=== PATIENT | female | born 1965 | race Two or more races ===

== ENCOUNTER → 2017-06-28 | Outpatient (CLI) | payer BC ==
[~2017-06-28] MED LIST: ASPI-231 PO
[2017-06-28 08:41] LABS: Basophils # (auto) 0 uL; Basophils % (auto) 0.8 % (0.0-2.0); Eosinophils # (auto) 0.1 uL; Eosinophils % (auto) 2.1 % (0.0-7.0); Hematocrit 41.4 % (36.0-46.0); Hemoglobin 13.9 g/dL (12.2-16.2); Lymphocytes # (auto) 1.6 uL; Lymphocytes % (auto) 36.1 % (10.0-50.0); Mean Corpuscular Hemoglobin 31.7 pg (28.0-32.0); Mean Corpuscular Hgb Conc. 33.6 g/dL (32.0-36.0); Mean Corpuscular Volume 94.4 fL (80.0-100.0); Monocytes # (auto) 0.3 uL; Monocytes % (auto) 7.5 % (0.0-12.0); Neutrophils # (auto) 2.4 uL; Neutrophils % (auto) 53.5 % (37.0-80.0); Nucleated Red Blood Cells % 0.1 %; Platelet Count (auto) 205 10^3/uL (140-450); Red Cell Distribution Width 13.4 % (11.8-14.3); White Blood Cell 4.5 10^3/uL (4.4-10.8)
[2017-06-28 09:46] LABS: Albumin 3.8 g/dL (3.4-5.0); Bilirubin, Total 0.6 mg/dL (0.2-1.0); Potassium 4.1 mmol/L (3.5-5.1); Total Protein 7.3 g/dL (6.4-8.2)
== END | disposition home or self-care (01) ==
LOC: LAB 08:23
PROVIDERS: ATTEND Internal Medicine
DX: Z12.10 Encounter for screening for malignant neoplasm of intestinal tract, unspecified (principal); F41.8 Other specified anxiety disorders; Z79.899 Other long term (current) drug therapy
CPT/HCPCS: 36415; 80053; 80061; 82306; 84443; 85025

== ENCOUNTER → 2017-07-04 | Outpatient (CLI) | payer BC | END | disposition home or self-care (01) | LOC: LAB 09:20 | PROVIDERS: ATTEND Internal Medicine | DX: Z12.10 Encounter for screening for malignant neoplasm of intestinal tract, unspecified (principal); F41.8 Other specified anxiety disorders | CPT/HCPCS: 82270 ==

== ENCOUNTER → 2019-03-11 | Outpatient (CLI) | payer BC ==
[2019-03-11 08:38] LABS: Albumin 3.6 g/dL (3.4-5.0); Calcium 9.1 mg/dL (8.5-10.1); Potassium 4.3 mmol/L (3.5-5.1)
[2019-03-11 08:45] LABS: BUN/Creatinine Ratio 12.5; Bilirubin, Total 0.5 mg/dL (0.2-1.0); Total Protein 7.3 g/dL (6.4-8.2)
[2019-03-11 08:48] LABS: Basophils # (auto) 0 uL; Basophils % (auto) 0.9 % (0.0-2.0); Eosinophils # (auto) 0.1 uL; Hematocrit 42.3 % (36.0-46.0); Hemoglobin 14.2 g/dL (12.2-16.2); Lymphocytes # (auto) 1.4 uL; Lymphocytes % (auto) 33.2 % (10.0-50.0); Mean Corpuscular Hemoglobin 31.3 pg (28.0-32.0); Mean Corpuscular Hgb Conc. 33.6 g/dL (32.0-36.0); Mean Corpuscular Volume 93.2 fL (80.0-100.0); Monocytes # (auto) 0.3 uL; Monocytes % (auto) 7.2 % (0.0-12.0); Neutrophils # (auto) 2.4 uL; Neutrophils % (auto) 56.7 % (37.0-80.0); Platelet Count (auto) 216 10^3/uL (140-450); Red Blood Cells 4.54 10^6/uL (4.0-5.20); Red Cell Distribution Width 13.9 % (11.8-14.3); White Blood Cell 4.2 10^3/uL (4.4-10.8)
== END | disposition home or self-care (01) ==
LOC: LAB 07:37
PROVIDERS: ATTEND Internal Medicine
DX: Z12.11 Encounter for screening for malignant neoplasm of colon (principal)
CPT/HCPCS: 36415; 80053; 80061; 82306; 84443; 85025

== ENCOUNTER → 2020-05-03 | Outpatient (CLI) | payer BC ==
[2020-05-03 10:38] LABS: Basophils # (auto) 0 10 ^3/uL (0-0.2); Basophils % (auto) 0.9 % (0.0-2.0); Eosinophils # (auto) 0.1 10 ^3/uL (0-0.8); Eosinophils % (auto) 3.7 % (0.0-7.0); Hematocrit 38.9 % (36.0-46.0); Hemoglobin 12.8 g/dL (12.2-16.2); Lymphocytes # (auto) 1.3 10 ^3/uL (0.4-5.4); Lymphocytes % (auto) 36.1 % (10.0-50.0); Mean Corpuscular Hemoglobin 30.4 pg (28.0-32.0); Mean Corpuscular Volume 92.2 fL (80.0-100.0); Monocytes # (auto) 0.3 10 ^3/uL (0-1.3); Monocytes % (auto) 8.3 % (0.0-12.0); Neutrophils # (auto) 1.9 10 ^3/uL (1.6-8.6); Nucleated Red Blood Cells % 0.1 %; Platelet Count (auto) 270 10^3/uL (140-450); Red Blood Cells 4.22 10^6/uL (4.0-5.20); Red Cell Distribution Width 13.8 % (11.8-14.3); White Blood Cell 3.6 10^3/uL (4.4-10.8)
[2020-05-03 10:58] LABS: Potassium 4.2 mmol/L (3.5-5.1)
[2020-05-03 11:06] LABS: Albumin 3.8 g/dL (3.4-5.0); BUN/Creatinine Ratio 17.9; Bilirubin, Total 0.5 mg/dL (0.2-1.0); Total Protein 7.8 g/dL (6.4-8.2)
== END | disposition home or self-care (01) ==
LOC: LAB 08:41
PROVIDERS: ATTEND Internal Medicine
DX: Z00.00 Encounter for general adult medical examination without abnormal findings (principal); E55.9 Vitamin D deficiency, unspecified
CPT/HCPCS: 36415; 80053; 80061; 82274; 82306; 84443; 85025

== ENCOUNTER → 2021-11-20 | Outpatient (CLI) | payer BC ==
[~2021-11-20] MED LIST changes: -ASPI-231 PO; +ASPI1TAB20 PO
[2021-11-20 08:40] LABS: Urine Bacteria NONE SEEN /hpf (None Seen); Urine Blood 1+ /uL (Negative); Urine Mucus FEW (None Seen); Urine Specific Gravity 1.026 (1.001-1.035); Urine WBC 37 /hpf (0 - 5)
[2021-11-20 09:16] LABS: Basophils # (auto) 0 10 ^3/uL (0-0.2); Basophils % (auto) 0.5 % (0.0-2.0); Eosinophils # (auto) 0.1 10 ^3/uL (0-0.8); Eosinophils % (auto) 1.6 % (0.0-7.0); Hematocrit 43.2 % (36.0-46.0); Hemoglobin 14.2 g/dL (12.2-16.2); Lymphocytes # (auto) 1.5 10 ^3/uL (0.4-5.4); Lymphocytes % (auto) 28.7 % (10.0-50.0); Mean Corpuscular Volume 90.6 fL (80.0-100.0); Monocytes # (auto) 0.4 10 ^3/uL (0-1.3); Monocytes % (auto) 6.9 % (0.0-12.0); Neutrophils # (auto) 3.2 10 ^3/uL (1.6-8.6); Neutrophils % (auto) 62.3 % (37.0-80.0); Nucleated Red Blood Cells % 0.1 %; Red Blood Cells 4.76 10^6/uL (4.0-5.20); White Blood Cell 5.1 10^3/uL (4.4-10.8)
[2021-11-20 09:17] LABS: Mean Corpuscular Hemoglobin 29.8 pg (28.0-32.0); Mean Corpuscular Hgb Conc. 32.9 g/dL (32.0-36.0); Red Cell Distribution Width 14.4 % (11.8-14.3)
[2021-11-20 09:49] LABS: Albumin 3.9 g/dL (3.4-5.0); Bilirubin, Total 0.7 mg/dL (0.2-1.0); Calcium 9.5 mg/dL (8.5-10.1); Total Protein 7.8 g/dL (6.4-8.2)
== END | disposition home or self-care (01) ==
LOC: LAB 08:08
PROVIDERS: ATTEND Internal Medicine
DX: Z00.00 Encounter for general adult medical examination without abnormal findings (principal); E55.9 Vitamin D deficiency, unspecified; R10.13 Epigastric pain
CPT/HCPCS: 36415; 80053; 80061; 81001; 82150; 82306; 83690; 84439; 84443; 85025; 85652

== ENCOUNTER → 2021-12-05 | Outpatient (CLI) | payer BC | END | disposition home or self-care (01) | LOC: LAB 07:30 | PROVIDERS: ATTEND Internal Medicine | DX: Z00.00 Encounter for general adult medical examination without abnormal findings (principal); E55.9 Vitamin D deficiency, unspecified; R10.13 Epigastric pain | CPT/HCPCS: 82270 ==

== ENCOUNTER → 2022-05-08 | Outpatient (CLI) | payer BC ==
[2022-05-08 08:47] LABS: Calcium 9.1 mg/dL (8.5-10.1); Potassium 4.5 mmol/L (3.5-5.1)
[2022-05-08 08:49] LABS: BUN/Creatinine Ratio 14.6
== END | disposition home or self-care (01) ==
LOC: LAB 08:14
PROVIDERS: ATTEND Internal Medicine
DX: R10.13 Epigastric pain (principal)
CPT/HCPCS: 36415; 80048

== ENCOUNTER → 2022-06-05 | Outpatient (CLI) | payer BC ==
[2022-06-05 15:08] LABS: Eosinophils # (auto) 0.1 10 ^3/uL (0-0.8); Hematocrit 41.8 % (36.0-46.0); Hemoglobin 13.3 g/dL (12.2-16.2); Monocytes # (auto) 0.4 10 ^3/uL (0-1.3)
[2022-06-05 15:11] LABS: Basophils # (auto) 0.1 10 ^3/uL (0-0.2); Basophils % (auto) 1.1 % (0.0-2.0); Eosinophils % (auto) 1.4 % (0.0-7.0); Lymphocytes # (auto) 1.3 10 ^3/uL (0.4-5.4); Lymphocytes % (auto) 25.4 % (10.0-50.0); Mean Corpuscular Hemoglobin 29.1 pg (28.0-32.0); Mean Corpuscular Hgb Conc. 31.7 g/dL (32.0-36.0); Mean Corpuscular Volume 91.6 fL (80.0-100.0); Monocytes % (auto) 7.3 % (0.0-12.0); Neutrophils # (auto) 3.4 10 ^3/uL (1.6-8.6); Neutrophils % (auto) 64.8 % (37.0-80.0); Nucleated Red Blood Cells % 0.1 %; Red Blood Cells 4.57 10^6/uL (4.0-5.20); Red Cell Distribution Width 14.2 % (11.8-14.3); White Blood Cell 5.2 10^3/uL (4.4-10.8)
[2022-06-05 15:16] LABS: Albumin 3.5 g/dL (3.4-5.0); Potassium 4.4 mmol/L (3.5-5.1)
[2022-06-05 15:22] LABS: BUN/Creatinine Ratio 18.6; Bilirubin, Total 0.5 mg/dL (0.2-1.0); Total Protein 7.3 g/dL (6.4-8.2)
== END | disposition home or self-care (01) ==
LOC: LAB 14:52
PROVIDERS: ATTEND Internal Medicine
DX: Z00.00 Encounter for general adult medical examination without abnormal findings (principal); Z12.11 Encounter for screening for malignant neoplasm of colon; M75.100 Unspecified rotator cuff tear or rupture of unspecified shoulder, not specified as traumatic
CPT/HCPCS: 36415; 80053; 80061; 82274; 84439; 84443; 85025; 85652

== ENCOUNTER 2022-07-07 03:29 | Emergency (ER) | payer BC ==
[~2022-07-07] VITALS: Ht 160 cm; Wt 82.3 kg
[2022-07-07 06:09] LABS: Basophils # (auto) 0 10 ^3/uL (0-0.2); Basophils % (auto) 0.4 % (0.0-2.0); Eosinophils # (auto) 0.1 10 ^3/uL (0-0.8); Eosinophils % (auto) 1.3 % (0.0-7.0); Hematocrit 37.3 % (36.0-46.0); Hemoglobin 12.8 g/dL (12.2-16.2); Lymphocytes # (auto) 1.2 10 ^3/uL (0.4-5.4); Lymphocytes % (auto) 23.7 % (10.0-50.0); Mean Corpuscular Hemoglobin 30.3 pg (28.0-32.0); Mean Corpuscular Hgb Conc. 34.2 g/dL (32.0-36.0); Mean Corpuscular Volume 88.5 fL (80.0-100.0); Monocytes # (auto) 0.4 10 ^3/uL (0-1.3); Monocytes % (auto) 7.1 % (0.0-12.0); Neutrophils # (auto) 3.4 10 ^3/uL (1.6-8.6); Neutrophils % (auto) 67.5 % (37.0-80.0); Nucleated Red Blood Cells % 0.1 %; Red Blood Cells 4.22 10^6/uL (4.0-5.20); Red Cell Distribution Width 14.3 % (11.8-14.3); White Blood Cell 5.1 10^3/uL (4.4-10.8)
[2022-07-07 06:27] LABS: Urine Bacteria NONE SEEN /hpf (None Seen); Urine Blood Negative /uL (Negative); Urine Hyaline Cast FEW /lpf (0 - 2); Urine Mucus FEW (None Seen); Urine Specific Gravity 1.021 (1.001-1.035); Urine WBC 8 /hpf (0 - 5)
[2022-07-07 06:43] LABS: Albumin 3.5 g/dL (3.4-5.0); Calcium 8.7 mg/dL (8.5-10.1); Potassium 3.7 mmol/L (3.5-5.1)
[2022-07-07 06:48] LABS: BUN/Creatinine Ratio 14.6; Bilirubin, Total 0.6 mg/dL (0.2-1.0); Total Protein 7.4 g/dL (6.4-8.2)
[2022-07-07] MEDS ORDERED: PANTOPRAZOLE 40 MG TAB PO ONE (07:30)
[2022-07-07] MEDS ORDERED: DONNATAL 5ml ORAL Elix (BELLADONNA ALK-PHENOBARB) PO ONE (07:30)
[2022-07-07] MEDS ORDERED: ALUM & MAG HYDROX-SIMETH LIQ(MAALOX) 30 ML PO ONE (07:30)
[2022-07-07] MEDS ORDERED: CIPROFLOXACIN HCL 500 MG TAB PO ONE (07:30)
[2022-07-07 07:35] VITALS: BP 124/83
[2022-07-07] MEDS ORDERED: CIPR-173 PO (07:56)
[2022-07-07] MEDS ORDERED: METO-281 PO (07:56)
[2022-07-07] MEDS ORDERED: ALUMCHW6 PO (07:56)
== END 2022-07-07 08:25 | disposition home or self-care (01) ==
LOC: ER 03:35
DX: K29.70 Gastritis, unspecified, without bleeding (principal); K27.9 Peptic ulcer, site unspecified, unspecified as acute or chronic, without hemorrhage or perforation; N39.0 Urinary tract infection, site not specified; F17.210 Nicotine dependence, cigarettes, uncomplicated; Z90.49 Acquired absence of other specified parts of digestive tract; Z98.51 Tubal ligation status; Z91.018 Allergy to other foods
CPT/HCPCS: 36415; 80053; 81001; 83690; 85025

== ENCOUNTER → 2022-08-21 | Outpatient (CLI) | payer BC ==
[~2022-08-21] MED LIST changes: +ALUMCHW6 PO; +CIPR-173 PO; +METO-281 PO
[2022-08-21 12:14] LABS: Basophils # (auto) 0 10 ^3/uL (0-0.2); Basophils % (auto) 0.6 % (0.0-2.0); Eosinophils # (auto) 0.1 10 ^3/uL (0-0.8); Eosinophils % (auto) 2.2 % (0.0-7.0); Hematocrit 38.5 % (36.0-46.0); Hemoglobin 12.8 g/dL (12.2-16.2); Lymphocytes # (auto) 1.5 10 ^3/uL (0.4-5.4); Lymphocytes % (auto) 26.7 % (10.0-50.0); Mean Corpuscular Hgb Conc. 33.4 g/dL (32.0-36.0); Monocytes # (auto) 0.4 10 ^3/uL (0-1.3); Monocytes % (auto) 6.7 % (0.0-12.0); Neutrophils # (auto) 3.5 10 ^3/uL (1.6-8.6); Neutrophils % (auto) 63.8 % (37.0-80.0); Nucleated Red Blood Cells % 0.3 %; Red Blood Cells 4.42 10^6/uL (4.0-5.20); Red Cell Distribution Width 14.8 % (11.8-14.3); White Blood Cell 5.5 10^3/uL (4.4-10.8)
[2022-08-21 12:50] LABS: Albumin 3.3 g/dL (3.4-5.0); Calcium 8.9 mg/dL (8.5-10.1); Potassium 4.3 mmol/L (3.5-5.1)
[2022-08-21 12:58] LABS: BUN/Creatinine Ratio 22.5; Bilirubin, Total 0.3 mg/dL (0.2-1.0); CRP High Sensitivity 1.47 mg/dL (< 0.3); Total Protein 7.4 g/dL (6.4-8.2)
== END | disposition home or self-care (01) ==
LOC: LAB 10:59
PROVIDERS: ATTEND Internal Medicine Rheumatology
DX: R94.5 Abnormal results of liver function studies (principal); M05.79 Rheumatoid arthritis with rheumatoid factor of multiple sites without organ or systems involvement
CPT/HCPCS: 36415; 80053; 85025; 85652; 86141; 86704; 87340

== ENCOUNTER 2022-09-25 13:57 | Outpatient (CLI) | payer BC ==
[~2022-09-25] VITALS: Ht 160 cm; Wt 78.5 kg
[2022-09-25 14:09] LABS: Basophils # (auto) 0 10 ^3/uL (0-0.2); Basophils % (auto) 0.5 % (0.0-2.0); Eosinophils # (auto) 0.1 10 ^3/uL (0-0.8); Eosinophils % (auto) 1.7 % (0.0-7.0); Hematocrit 39.5 % (36.0-46.0); Hemoglobin 13.3 g/dL (12.2-16.2); Lymphocytes # (auto) 1.5 10 ^3/uL (0.4-5.4); Lymphocytes % (auto) 23.1 % (10.0-50.0); Mean Corpuscular Hemoglobin 28.7 pg (28.0-32.0); Mean Corpuscular Hgb Conc. 33.7 g/dL (32.0-36.0); Mean Corpuscular Volume 85.2 fL (80.0-100.0); Monocytes # (auto) 0.5 10 ^3/uL (0-1.3); Monocytes % (auto) 6.9 % (0.0-12.0); Neutrophils # (auto) 4.5 10 ^3/uL (1.6-8.6); Neutrophils % (auto) 67.8 % (37.0-80.0); Nucleated Red Blood Cells % 0.1 %; Red Blood Cells 4.64 10^6/uL (4.0-5.20); Red Cell Distribution Width 15.5 % (11.8-14.3); White Blood Cell 6.7 10^3/uL (4.4-10.8)
[2022-09-25 14:31] LABS: INR 1.02 (0.9-1.15)
[2022-09-25 14:52] LABS: Albumin 3.4 g/dL (3.4-5.0); BUN/Creatinine Ratio 13.5; Calcium 9.3 mg/dL (8.5-10.1); Potassium 4.2 mmol/L (3.5-5.1)
[2022-09-25 14:55] LABS: Bilirubin, Total 0.6 mg/dL (0.2-1.0); Total Protein 7.9 g/dL (6.4-8.2)
[2022-09-25] MEDS ORDERED: MELO-61 PO (16:04)
[2022-09-25] MEDS ORDERED: PANT40TA2 PO (16:04)
== END 2022-09-25 14:52 | disposition home or self-care (01) ==
LOC: LAB 13:57 → EDSTATUS 09-27 09:48
PROVIDERS: ATTEND Internal Medicine Gastroenterology
DX: Z01.812 Encounter for preprocedural laboratory examination (principal); R10.13 Epigastric pain; Z20.822 Contact with and (suspected) exposure to COVID-19
CPT/HCPCS: 36415; 80053; 85025; 85610; 85730; U0003

== ENCOUNTER → 2023-01-14 | Outpatient (CLI) | payer BC ==
[~2023-01-14] MED LIST changes: -ALUMCHW6 PO; -ASPI1TAB20 PO; -CIPR-173 PO; +MELO-61 PO; -METO-281 PO; +PANT40TA2 PO
[2023-01-14 12:24] LABS: Basophils # (auto) 0 10 ^3/uL (0-0.2); Basophils % (auto) 0.5 % (0.0-2.0); Eosinophils # (auto) 0.1 10 ^3/uL (0-0.8); Eosinophils % (auto) 2.3 % (0.0-7.0); Hematocrit 37.6 % (36.0-46.0); Hemoglobin 12.6 g/dL (12.2-16.2); Lymphocytes # (auto) 1.6 10 ^3/uL (0.4-5.4); Lymphocytes % (auto) 28.6 % (10.0-50.0); Mean Corpuscular Hemoglobin 28.3 pg (28.0-32.0); Mean Corpuscular Hgb Conc. 33.6 g/dL (32.0-36.0); Mean Corpuscular Volume 84.2 fL (80.0-100.0); Monocytes # (auto) 0.4 10 ^3/uL (0-1.3); Monocytes % (auto) 7.9 % (0.0-12.0); Neutrophils # (auto) 3.4 10 ^3/uL (1.6-8.6); Neutrophils % (auto) 60.7 % (37.0-80.0); Nucleated Red Blood Cells % 0.1 %; Red Blood Cells 4.47 10^6/uL (4.0-5.20); Red Cell Distribution Width 16.1 % (11.8-14.3); White Blood Cell 5.6 10^3/uL (4.4-10.8)
[2023-01-14 13:29] LABS: Albumin 3.5 g/dL (3.4-5.0); BUN/Creatinine Ratio 21.1 (10.0-20.0); Potassium 4.4 mmol/L (3.5-5.1)
[2023-01-14 13:33] LABS: Bilirubin, Total 0.4 mg/dL (0.2-1.0); Total Protein 7.9 g/dL (6.4-8.2)
[2023-01-15 14:46] LABS: CRP High Sensitivity 0.92 mg/dL (< 0.3)
== END | disposition home or self-care (01) ==
LOC: LAB 11:18
PROVIDERS: ATTEND Internal Medicine Rheumatology
DX: M05.79 Rheumatoid arthritis with rheumatoid factor of multiple sites without organ or systems involvement (principal); Z79.899 Other long term (current) drug therapy
CPT/HCPCS: 36415; 80053; 85025; 85652; 86141

== ENCOUNTER → 2023-05-10 | Outpatient (CLI) | payer SELFPAY ==
[2023-05-10 11:44] LABS: Basophils # (auto) 0 10 ^3/uL (0-0.2); Basophils % (auto) 0.6 % (0.0-2.0); Eosinophils # (auto) 0.1 10 ^3/uL (0-0.8); Hematocrit 37.6 % (36.0-46.0); Hemoglobin 12.8 g/dL (12.2-16.2); Lymphocytes # (auto) 1.5 10 ^3/uL (0.4-5.4); Lymphocytes % (auto) 28.1 % (10.0-50.0); Mean Corpuscular Hemoglobin 29.5 pg (28.0-32.0); Mean Corpuscular Hgb Conc. 34.2 g/dL (32.0-36.0); Mean Corpuscular Volume 86.2 fL (80.0-100.0); Monocytes # (auto) 0.4 10 ^3/uL (0-1.3); Monocytes % (auto) 6.6 % (0.0-12.0); Neutrophils # (auto) 3.3 10 ^3/uL (1.6-8.6); Neutrophils % (auto) 62.7 % (37.0-80.0); Nucleated Red Blood Cells % 0.1 %; Red Blood Cells 4.36 10^6/uL (4.0-5.20); Red Cell Distribution Width 15.8 % (11.8-14.3); White Blood Cell 5.3 10^3/uL (4.4-10.8)
[2023-05-10 12:14] LABS: Albumin 3.4 g/dL (3.4-5.0); Potassium 4.2 mmol/L (3.5-5.1)
[2023-05-10 12:18] LABS: BUN/Creatinine Ratio 13.5 (10.0-20.0); Bilirubin, Total 0.4 mg/dL (0.2-1.0); CRP High Sensitivity 0.55 mg/dL (< 0.3); Total Protein 7.5 g/dL (6.4-8.2)
[2023-05-10 12:24] LABS: Erythrocyte Sedimentation Rate 23 mm/hr (0-20)
== END | disposition home or self-care (01) ==
LOC: LAB 11:13
PROVIDERS: ATTEND Internal Medicine Rheumatology
DX: M05.79 Rheumatoid arthritis with rheumatoid factor of multiple sites without organ or systems involvement (principal); Z79.899 Other long term (current) drug therapy
CPT/HCPCS: 36415; 80053; 85025; 85652; 86141

== ENCOUNTER → 2023-08-20 | Outpatient (CLI) | payer BC ==
[2023-08-20 09:35] LABS: Basophils # (auto) 0 10 ^3/uL (0-0.2); Basophils % (auto) 0.6 % (0.0-2.0); Eosinophils # (auto) 0.1 10 ^3/uL (0-0.8); Eosinophils % (auto) 2.7 % (0.0-7.0); Hematocrit 39.6 % (36.0-46.0); Hemoglobin 13.2 g/dL (12.2-16.2); Lymphocytes # (auto) 1.2 10 ^3/uL (0.4-5.4); Lymphocytes % (auto) 31.8 % (10.0-50.0); Mean Corpuscular Hemoglobin 30.8 pg (28.0-32.0); Mean Corpuscular Hgb Conc. 33.4 g/dL (32.0-36.0); Mean Corpuscular Volume 92.2 fL (80.0-100.0); Monocytes # (auto) 0.3 10 ^3/uL (0-1.3); Monocytes % (auto) 8.5 % (0.0-12.0); Neutrophils # (auto) 2.1 10 ^3/uL (1.6-8.6); Neutrophils % (auto) 56.4 % (37.0-80.0); Red Blood Cells 4.29 10^6/uL (4.0-5.20); Red Cell Distribution Width 16.7 % (11.8-14.3); White Blood Cell 3.8 10^3/uL (4.4-10.8)
[2023-08-20 09:45] LABS: Alanine Aminotransferase 21 U/L (7-40); Albumin 4.3 g/dL (3.2-4.8); Alkaline Phosphatase 83 U/L (46-116); Anion Gap 5 (5-15); Aspartate Aminotransferase 28 U/L (13-40); BUN/Creatinine Ratio 8.3 (10.0-20.0); Bilirubin, Total 0.8 mg/dL (0.2-1.0); Blood Urea Nitrogen 7 mg/dL (9-23); CRP High Sensitivity 0.38 mg/dL (<1.0); Calcium 9.4 mg/dL (8.5-10.1); Carbon Dioxide 27 mmol/L (20-30); Chloride 108 mmol/L (98-107); Glucose 88 mg/dL (74-106); Potassium 4.4 mmol/L (3.5-5.1); Sodium 140 mmol/L (136-145); Total Protein 6.9 g/dL (5.7-8.2)
[2023-08-20 09:54] LABS: Erythrocyte Sedimentation Rate 24 mm/hr (0-20)
== END | disposition home or self-care (01) ==
LOC: LAB 07:53
PROVIDERS: ATTEND Internal Medicine Rheumatology
DX: M05.79 Rheumatoid arthritis with rheumatoid factor of multiple sites without organ or systems involvement (principal); Z79.899 Other long term (current) drug therapy
CPT/HCPCS: 36415; 80053; 85025; 85652; 86141

== ENCOUNTER → 2023-11-18 | Outpatient (CLI) | payer BC ==
[2023-11-18 16:27] LABS: Basophils # (auto) 0 10 ^3/uL (0-0.2); Basophils % (auto) 0.4 % (0.0-2.0); Eosinophils # (auto) 0.1 10 ^3/uL (0-0.8); Eosinophils % (auto) 2.6 % (0.0-7.0); Lymphocytes # (auto) 1.5 10 ^3/uL (0.4-5.4); Lymphocytes % (auto) 36.4 % (10.0-50.0); Mean Corpuscular Hgb Conc. 33.4 g/dL (32.0-36.0); Monocytes # (auto) 0.4 10 ^3/uL (0-1.3); Monocytes % (auto) 8.9 % (0.0-12.0); Neutrophils # (auto) 2.1 10 ^3/uL (1.6-8.6); Neutrophils % (auto) 51.7 % (37.0-80.0); Nucleated Red Blood Cells % 0.1 %; Red Blood Cells 4.19 10^6/uL (4.0-5.20); Red Cell Distribution Width 15.5 % (11.8-14.3); White Blood Cell 4.1 10^3/uL (4.4-10.8)
[2023-11-18 16:35] LABS: Albumin 4.3 g/dL (3.2-4.8); Bilirubin, Direct 0.2 mg/dL (<0.3); Bilirubin, Total 0.6 mg/dL (0.2-1.0); CRP High Sensitivity 0.33 mg/dL (<1.0); Total Protein 6.9 g/dL (5.7-8.2)
[2023-11-18 17:34] LABS: Erythrocyte Sedimentation Rate 16 mm/hr (0-20)
== END | disposition home or self-care (01) ==
LOC: LAB 15:56
DX: Z00.00 Encounter for general adult medical examination without abnormal findings (principal)
CPT/HCPCS: 36415; 80076; 85025; 85652; 86141

== ENCOUNTER → 2024-04-29 | Outpatient (CLI) | payer BC ==
[2024-04-29 07:51] LABS: Urine Bacteria None Seen /hpf (None Seen)
[2024-04-29 08:05] LABS: Basophils # (auto) 0 10 ^3/uL (0-0.2); Basophils % (auto) 0.5 % (0.0-2.0); Eosinophils # (auto) 0.1 10 ^3/uL (0-0.8); Eosinophils % (auto) 3.2 % (0.0-7.0); Hematocrit 39.2 % (36.0-46.0); Hemoglobin 13.2 g/dL (12.2-16.2); Lymphocytes # (auto) 1.5 10 ^3/uL (0.4-5.4); Mean Corpuscular Hemoglobin 31.6 pg (28.0-32.0); Mean Corpuscular Hgb Conc. 33.7 g/dL (32.0-36.0); Mean Corpuscular Volume 93.8 fL (80.0-100.0); Monocytes # (auto) 0.4 10 ^3/uL (0-1.3); Monocytes % (auto) 7.8 % (0.0-12.0); Neutrophils # (auto) 2.6 10 ^3/uL (1.6-8.6); Neutrophils % (auto) 56.5 % (37.0-80.0); Red Blood Cells 4.18 10^6/uL (4.0-5.20); Red Cell Distribution Width 15.3 % (11.8-14.3); White Blood Cell 4.6 10^3/uL (4.4-10.8)
[2024-04-29 08:15] LABS: Urine Blood Negative /uL (Negative); Urine Clarity Clear (Clear); Urine Color Light-Yellow (Yellow); Urine Mucus FEW (None Seen); Urine Protein, UAD TRACE (Negative); Urine Specific Gravity 1.022 (1.001-1.035); Urine Urobilinogen Normal (Negative); Urine WBC 1 /hpf (0 - 5); Urine pH 5.5 (5.0-9.0)
[2024-04-29 08:33] LABS: Alanine Aminotransferase 19 U/L (7-40); Albumin 4.1 g/dL (3.2-4.8); Alkaline Phosphatase 73 U/L (46-116); Anion Gap 6 (5-15); Aspartate Aminotransferase 19 U/L (13-40); BUN/Creatinine Ratio 13.1 (10.0-20.0); Blood Urea Nitrogen 11 mg/dL (9-23); Calcium 9.4 mg/dL (8.7-10.4); Carbon Dioxide 26 mmol/L (20-30); Chloride 110 mmol/L (98-107); Cholesterol 144 mg/dL (< 200); Glucose 96 mg/dL (74-106); HDL Cholesterol 43 mg/dL (40-59); LDL Cholesterol 91 mg/dL (< 100); Potassium 4.4 mmol/L (3.5-5.1); Sodium 142 mmol/L (136-145); Total Protein 6.5 g/dL (5.7-8.2); Triglycerides 121 mg/dL (< 150)
[2024-04-29 08:49] LABS: Bilirubin, Total 0.5 mg/dL (0.2-1.0)
== END | disposition home or self-care (01) ==
LOC: LAB 07:38
PROVIDERS: ATTEND Internal Medicine
DX: Z00.01 Encounter for general adult medical examination with abnormal findings (principal); R73.03 Prediabetes; E78.2 Mixed hyperlipidemia; M06.4 Inflammatory polyarthropathy
CPT/HCPCS: 36415; 80053; 80061; 81001; 83036; 84439; 84443; 85025

== ENCOUNTER → 2024-06-26 | Outpatient (CLI) | payer BC ==
[2024-06-26 08:17] LABS: Basophils # (auto) 0 10 ^3/uL (0-0.2); Basophils % (auto) 0.7 % (0.0-2.0); Eosinophils # (auto) 0.1 10 ^3/uL (0-0.8); Eosinophils % (auto) 2.7 % (0.0-7.0); Hemoglobin 13.5 g/dL (12.2-16.2); Lymphocytes # (auto) 1.3 10 ^3/uL (0.4-5.4); Lymphocytes % (auto) 31.3 % (10.0-50.0); Mean Corpuscular Hemoglobin 32.4 pg (28.0-32.0); Mean Corpuscular Hgb Conc. 34.7 g/dL (32.0-36.0); Mean Corpuscular Volume 93.4 fL (80.0-100.0); Monocytes # (auto) 0.4 10 ^3/uL (0-1.3); Monocytes % (auto) 9.1 % (0.0-12.0); Neutrophils # (auto) 2.3 10 ^3/uL (1.6-8.6); Neutrophils % (auto) 56.2 % (37.0-80.0); Nucleated Red Blood Cells % 0.1 %; Platelet Count (auto) 200 10^3/uL (140-450); Red Blood Cells 4.18 10^6/uL (4.0-5.20); Red Cell Distribution Width 15.2 % (11.8-14.3); White Blood Cell 4.1 10^3/uL (4.4-10.8)
[2024-06-26 08:53] LABS: Creatinine, Urine 93.67 mg/dL (30.0-125.0)
[2024-06-26 08:54] LABS: Erythrocyte Sedimentation Rate 13 mm/hr (0-20)
[2024-06-26 08:56] LABS: Micro Albumin < 3.0 mg/L (<30.0)
[2024-06-26 09:06] LABS: Alanine Aminotransferase 21 U/L (7-40); Albumin 4.2 g/dL (3.2-4.8); Alkaline Phosphatase 77 U/L (46-116); Anion Gap 7 (5-15); Aspartate Aminotransferase 19 U/L (13-40); BUN/Creatinine Ratio 11.1 (10.0-20.0); Bilirubin, Total 0.4 mg/dL (0.2-1.0); Blood Urea Nitrogen 10 mg/dL (9-23); CRP High Sensitivity 0.19 mg/dL (<1.0); Calcium 9.4 mg/dL (8.7-10.4); Carbon Dioxide 24 mmol/L (20-31); Chloride 109 mmol/L (98-107); Glucose 99 mg/dL (74-106); Potassium 4.4 mmol/L (3.5-5.1); Sodium 140 mmol/L (136-145); Total Protein 6.6 g/dL (5.7-8.2)
== END | disposition home or self-care (01) ==
LOC: LAB 07:57
PROVIDERS: ATTEND Internal Medicine
DX: R73.03 Prediabetes (principal); M05.79 Rheumatoid arthritis with rheumatoid factor of multiple sites without organ or systems involvement; R80.9 Proteinuria, unspecified; N18.2 Chronic kidney disease, stage 2 (mild)
CPT/HCPCS: 36415; 80053; 82043; 82306; 82570; 85025; 85652; 86141

== ENCOUNTER → 2024-11-18 | Outpatient (CLI) | payer BC ==
[2024-11-18 16:19] LABS: Basophils # (auto) 0 10 ^3/uL (0-0.2); Basophils % (auto) 0.4 % (0.0-2.0); Eosinophils # (auto) 0.2 10 ^3/uL (0-0.8); Eosinophils % (auto) 3.1 % (0.0-7.0); Hematocrit 38.9 % (36.0-46.0); Lymphocytes # (auto) 1.5 10 ^3/uL (0.4-5.4); Lymphocytes % (auto) 31.7 % (10.0-50.0); Mean Corpuscular Hemoglobin 31.1 pg (28.0-32.0); Mean Corpuscular Hgb Conc. 33.3 g/dL (32.0-36.0); Mean Corpuscular Volume 93.4 fL (80.0-100.0); Monocytes # (auto) 0.4 10 ^3/uL (0-1.3); Monocytes % (auto) 7.9 % (0.0-12.0); Neutrophils # (auto) 2.8 10 ^3/uL (1.6-8.6); Neutrophils % (auto) 56.9 % (37.0-80.0); Platelet Count (auto) 211 10^3/uL (140-450); Red Blood Cells 4.16 10^6/uL (4.0-5.20); White Blood Cell 4.9 10^3/uL (4.4-10.8)
[2024-11-18 16:39] LABS: Alanine Aminotransferase 23 U/L (7-40); Albumin 4.5 g/dL (3.2-4.8); Alkaline Phosphatase 64 U/L (46-116); Anion Gap 7 (5-15); Aspartate Aminotransferase 22 U/L (13-40); BUN/Creatinine Ratio 15.2 (10.0-20.0); Blood Urea Nitrogen 14 mg/dL (9-23); CRP High Sensitivity 0.24 mg/dL (<1.0); Carbon Dioxide 27 mmol/L (20-31); Chloride 106 mmol/L (98-107); Glucose 100 mg/dL (74-106); Potassium 4.2 mmol/L (3.5-5.1); Sodium 140 mmol/L (136-145)
[2024-11-18 16:40] LABS: Bilirubin, Total 0.5 mg/dL (0.2-1.0); Total Protein 6.9 g/dL (5.7-8.2)
[2024-11-18 16:56] LABS: Erythrocyte Sedimentation Rate 16 mm/hr (0-20)
== END | disposition home or self-care (01) ==
LOC: LAB 15:34
PROVIDERS: ATTEND Internal Medicine Rheumatology
DX: M05.79 Rheumatoid arthritis with rheumatoid factor of multiple sites without organ or systems involvement (principal)
CPT/HCPCS: 36415; 80053; 85025; 85652; 86141

== ENCOUNTER → 2024-12-21 | Outpatient (CLI) | payer BC ==
[2024-12-21 08:14] LABS: Basophils # (auto) 0 10 ^3/uL (0-0.2); Basophils % (auto) 0.8 % (0.0-2.0); Eosinophils # (auto) 0.1 10 ^3/uL (0-0.8); Eosinophils % (auto) 3.2 % (0.0-7.0); Hemoglobin 14.2 g/dL (12.2-16.2); Lymphocytes # (auto) 0.8 10 ^3/uL (0.4-5.4); Lymphocytes % (auto) 25.2 % (10.0-50.0); Mean Corpuscular Hemoglobin 31.5 pg (28.0-32.0); Mean Corpuscular Hgb Conc. 33.9 g/dL (32.0-36.0); Monocytes # (auto) 0.3 10 ^3/uL (0-1.3); Neutrophils % (auto) 62.8 % (37.0-80.0); Nucleated Red Blood Cells % 0.1 %; Platelet Count (auto) 202 10^3/uL (140-450); Red Blood Cells 4.52 10^6/uL (4.0-5.20); Red Cell Distribution Width 14.9 % (11.8-14.3); White Blood Cell 3.2 10^3/uL (4.4-10.8)
[2024-12-21 08:21] LABS: Alanine Aminotransferase 26 U/L (7-40); Albumin 4.6 g/dL (3.2-4.8); Alkaline Phosphatase 71 U/L (46-116); Anion Gap 10 (5-15); Aspartate Aminotransferase 28 U/L (13-40); BUN/Creatinine Ratio 12.4 (10.0-20.0); Blood Urea Nitrogen 11 mg/dL (9-23); CRP High Sensitivity 0.22 mg/dL (<1.0); Calcium 9.7 mg/dL (8.7-10.4); Carbon Dioxide 24 mmol/L (20-31); Cholesterol 149 mg/dL (< 200); Glucose 99 mg/dL (74-106); HDL Cholesterol 42 mg/dL (40-59); LDL Cholesterol 88 mg/dL (< 100); Potassium 4.1 mmol/L (3.5-5.1); Sodium 142 mmol/L (136-145); Total Protein 7.3 g/dL (5.7-8.2); Triglycerides 137 mg/dL (< 150)
[2024-12-21 08:22] LABS: Bilirubin, Total 0.7 mg/dL (0.2-1.0)
[2024-12-21 08:26] LABS: Chloride 108 mmol/L (98-107)
[2024-12-21 08:33] LABS: Erythrocyte Sedimentation Rate 15 mm/hr (0-20)
== END | disposition home or self-care (01) ==
LOC: LAB 07:17
PROVIDERS: ATTEND Internal Medicine
DX: Z12.11 Encounter for screening for malignant neoplasm of colon (principal); E78.00 Pure hypercholesterolemia, unspecified; M05.79 Rheumatoid arthritis with rheumatoid factor of multiple sites without organ or systems involvement; M06.9 Rheumatoid arthritis, unspecified; E56.9 Vitamin deficiency, unspecified; R68.89 Other general symptoms and signs
CPT/HCPCS: 36415; 80053; 80061; 82306; 85025; 85652; 86141; 86431